=== PATIENT | male | born 1985 | race Caucasian/White ===

== ENCOUNTER 2018-06-28 11:56 | Emergency (ER) | payer SELFPAY ==
[~2018-06-28] VITALS: Ht 175.3 cm; Wt 71.7 kg
[2018-06-28] MEDS ORDERED: HYDROCODONE/APAP 5MG-325MG TAB PO ONE (13:30)
[2018-06-28] MEDS ORDERED: LIDOCAINE 1% 5ML-MPF INJ ONE (13:30)
[2018-06-28] MEDS ORDERED: TETANUS/DIPHTHERIA TOX ADULT 0.5 ML SYR IM ONE (13:30)
--- NOTE | 2018-06-28 13:36 | NUR ---
DR HERNANDEZ SPOKE TO DR AMIRA ZAPATA FOR REFERRAL FOR THROUGH AND THROUGH LACERATION REPAIR, DR ZAPATA IS GOING TO SEE PATIENT TODAY IN HIS OFFICE FOR LACERATION REPAIR. PT AND FAMILY AWARE OF POC TO FOLLOW UP IN OFFICE TODAY.
--- NOTE | 2018-06-28 14:17 | Diagnostic Imaging Report ---
FACIAL BONE SERIES - 4 Images HISTORY: Lip laceration, chipped tooth COMPARISON: None available. FINDINGS: Superimposed structures and apparently limits the sensitivity of the exam. Bones: No acute displaced fracture. No aggressive osseous lesion. Soft tissues: The soft tissues appear unremarkable. IMPRESSION: 1. No acute displaced fracture underlying the region of the lips. 2. No radiopaque foreign body. Signed by: Dr. oSren Bernabe D.O., M.M.M. on 06/28/2018 2:14 PM
[2018-06-28 14:22] VITALS: BP 150/87
== END 2018-06-28 14:25 | disposition home or self-care (01) ==
LOC: FSED 11:56
DX: S01.511A Laceration without foreign body of lip, initial encounter (principal); S02.5XXA Fracture of tooth (traumatic), initial encounter for closed fracture; S00.81XA Abrasion of other part of head, initial encounter; F17.210 Nicotine dependence, cigarettes, uncomplicated
CPT/HCPCS: 70140; 90471; 90714; 99283